=== PATIENT | female | born 1980 | race Caucasian/White ===

== ENCOUNTER 2020-09-21 07:14 | Day surgery (SDC) | payer BC, SELFPAY ==
[2020-09-19 10:10] LABS: BASOPHILS # (AUTO) 0.1 K/uL (0.0-0.2); BASOPHILS % (AUTO) 1.5 % (0.0-2.0); EOSINOPHILS # (AUTO) 0.1 K/uL (0.0-0.4); EOSINOPHILS % (AUTO) 1.2 % (0.0-4.0); HEMATOCRIT 36.3 % (36-48); HEMOGLOBIN 12.2 g/dL (12.0-16.0); LYMPHOCYTES # (AUTO) 1.4 K/uL (1.0-5.5); LYMPHOCYTES % (AUTO) 23.2 % (20.5-51.5); MEAN CORPUSCULAR HEMOGLOBIN 29 pg (27-31); MEAN CORPUSCULAR HGB CONC 34 % (32-36); MEAN CORPUSCULAR VOLUME 86 fL (79.0-98.0); MONOCYTES # (AUTO) 0.4 K/uL (0.0-1.0); MONOCYTES % (AUTO) 5.9 % (1.7-9.3); NEUTROPHILS # (AUTO) 4.1 K/uL (1.8-7.7); NEUTROPHILS % (AUTO) 68.2 % (40.0-70.0); PLATELET COUNT (AUTO) 215 K/uL (130-430); RED BLOOD CELL COUNT(AUTO) 4.23 MIL/uL (4.2-6.2); RED CELL DISTRIBUTION WIDTH 14.1 % (9.0-15.0)
[2020-09-19 10:26] LABS: BILIRUBIN,URINE NEGATIVE (NEGATIVE); CLARITY/URINE CLEAR (CLEAR); COLOR,URINE YELLOW (YELLOW); GLUCOSE,URINE NEGATIVE (NEGATIVE); KETONES,URINE NEGATIVE (NEGATIVE); LEUKOCYTE ESTERASE ,URINE NEGATIVE (NEGATIVE); NITRITE, URINE NEGATIVE (NEGATIVE); PROTEIN URINE NEGATIVE (NEGATIVE); UROBILINOGEN,URINE 0.2 (0.2-1.0)
[2020-09-19 10:27] LABS: BLOOD, URINE TRACE (NEGATIVE)
[2020-09-19 10:34] LABS: BACTERIA,URINE RARE /HPF (None Seen); MUCUS,URINE 1+ /LPF (None Seen); RBC,URINE 0-3 /HPF (0-3); WBC,URINE 0-3 /HPF (0-3)
[2020-09-19 10:45] LABS: ALBUMIN 4.1 g/dL (3.4-4.8); CREATININE 0.7 mg/dL (0.55-1.30); POTASSIUM 3.9 mmol/L (3.5-5.1); TOTAL BILIRUBIN 0.6 mg/dL (0.0-1.0)
[~2020-09-21] VITALS: Ht 162.6 cm; Wt 63.0 kg
[2020-09-21] MEDS ORDERED: CEFAZOLIN 2 GM IVPB PREMIX 50 ML IV ONE (08:15)
[2020-09-21] MEDS ORDERED: CIT IV ONE (09:00)
[2020-09-21] MEDS ORDERED: NS IV ONE (09:00)
[2020-09-21] MEDS ORDERED: FENTANYL IV ONE (09:00)
[2020-09-21] MEDS ORDERED: DEXAMETHASONE SOD PHOSPHATE 4 MG/ML VIAL IVP ONE ×2 (09:15→09:40)
[2020-09-21] MEDS ORDERED: ONDANSETRON HCL 4 MG/2 ML VIAL IVP ONE ×2 (09:15→09:30)
[2020-09-21] MEDS ORDERED: ONDANSETRON HCL 4 MG/2 ML VIAL ONE (09:23)
[2020-09-21] MEDS ORDERED: LR 1,000 ML IV.SOLN IV ONE (10:00)
[2020-09-21] MEDS ORDERED: fentaNYL CITRATE 250 MCG/5 ML AMP IV ONE (10:00)
[2020-09-21] MEDS ORDERED: ROCURONIUM BROMIDE 10 MG/ML (ZEMURON) IV ONE (10:00)
[2020-09-21] MEDS ORDERED: PROPOFOL 200MG/ 20ML VIAL (DIPRIVAN) IV ONE (10:00)
[2020-09-21] MEDS ORDERED: ROPIVACAINE HCL/PF 0.2% EPIDURAL 200 ML PLAST..BAG EP ONE (10:00)
[2020-09-21] MEDS ORDERED: MIDAZOLAM HCL 5 MG/5 ML VIAL IVP ONE (10:00)
[2020-09-21] MEDS ORDERED: LIDOCAINE 1% 10 MG/ML, 20 ML MDV IM ONE (10:00)
[2020-09-21] MEDS ORDERED: ONDANSETRON HCL 4 MG/2 ML VIAL IVP PRN ×2 (12:30→16:30)
[2020-09-21] MEDS ORDERED: KETOROLAC TROMETHAMINE 30 MG VIAL IVP PRN (12:30)
[2020-09-21] MEDS ORDERED: NALOXONE HCL 0.4 MG/ML AMP (NARCAN) IVP PRN (12:30)
[2020-09-21] MEDS ORDERED: HYDROmorphone 1 MG/ML INJ. CARTRIDGE ONE (15:48)
[2020-09-21] MEDS: HYDROmorphone 1 MG/ML INJ. CARTRIDGE IVP PRN ×2 (15:49→16:00)
[2020-09-21] MEDS ORDERED: OXYCODONE/ACETAMINOPHEN 5-325 TABLET PO PRN ×2 (16:30)
[2020-09-21] MEDS ORDERED: HYDROcodone/ACETAMIN 5-325 MG TAB (NORCO/ VICODIN) PO PRN (16:30)
[2020-09-21] MEDS ORDERED: HYDROmorphone 1 MG/ML INJ. CARTRIDGE IVP PRN (19:00)
[2020-09-21] MEDS: ONDANSETRON HCL 4 MG/2 ML VIAL IVP PRN (20:48)
[2020-09-21] MEDS ORDERED: ceFAZolin SODIUM 1 GM VIAL ONE ×2 (23:39→23:41)
[2020-09-21] MEDS: ceFAZolin SODIUM 1 GM in D5W 50 ML IV SCH (23:43)
[2020-09-22] MEDS: SIMETHICONE 80 MG TAB.CHEW PO SCH ×5 (01:58→21:57)
[2020-09-22] MEDS ORDERED: PHENAZOPYRIDINE HCL 100 MG TABLET ONE (03:46)
[2020-09-22] MEDS: PHENAZOPYRIDINE HCL 100 MG TABLET PO SCH ×5 (03:49→17:27)
[2020-09-22] MEDS: ceFAZolin SODIUM 1 GM in D5W 50 ML IV SCH ×4 (06:00→22:00)
[2020-09-22] MEDS: ONDANSETRON HCL 4 MG/2 ML VIAL IVP PRN ×2 (08:27→13:34)
--- NOTE | 2020-09-22 10:45 | NUR ---
RECEIVED PATIENT AAO LAYING IN BED ON ROOM AIR BREATHING EVEN AND UNLABORED NO SIGN OF DISTRESS. SURGICAL INCISION C/D/I WITH ABDOMINAL BINDER IN PLACE. LR GOING TO RIGHT WRIST #20 AT 100ML/HR. FAMILY AT BEDSIDE. SAFETY PRECAUTIONS IN PLACE WILL CONTINUE TO MONITOR.
[2020-09-22 11:30] VITALS: BP_SYST 116
--- NOTE | 2020-09-22 13:27 | NUR ---
Nutrition Note RD s/w pt via phone call as supervisor statement clerks stated that pt may be a vegetarian/vegan -- pt denied being a regular vegetarian/vegan, and reported that she is avoiding meats and certain vegetables d/t recent Sx -- pt disclosed LDAs: prefers to avoid rice, bread, pasta, broccoli, and cabbage, and prefers to eat mostly fruit, vegetables, soups, and potatoes; RD noted in LDAs list via [employer]. RD to continue to follow as per nutrition care standards.
[2020-09-22] MEDS ORDERED: SENNOSIDES/DOCUSATE SODIUM 1 TAB TABLET(SENOKOT-S) PO ONE (13:45)
[2020-09-22 16:02] VITALS: BP_SYST 116
--- NOTE | 2020-09-22 16:45 | NUR ---
PATIENT GETTING DRESSED WITH MOTHER ASSIST FELT LIGHTHEADED AND NAUSEATED. SITTING IN CHAIR AT BEDSIDE REQUESTING ICEPACKS. BLOOD PRESSURE 91/[address] SAHU TO REPORT RECEIVED NEW ORDERS AND CARRIED OUT.
--- NOTE | 2020-09-22 17:03 | NUR ---
PAGED PAGED ZITA LOVE AT [phone] SPOKE WITH ANA.
[2020-09-22] MEDS ORDERED: NACL 0.9% 1,000 ML IV ONE (17:15)
[2020-09-22] MEDS ORDERED: ONDANSETRON HCL 4 MG/2 ML VIAL ONE (17:15)
[2020-09-22] MEDS ORDERED: ONDANSETRON HCL 4 MG/2 ML VIAL IVP ONE (17:15)
--- NOTE | 2020-09-22 18:45 | NUR ---
PATIENT RESTING IN BED WITH EYES CLOSE NO SIGN OF DISTRESS. FAMILY AT BEDSIDE. BED IN LOW CALL LIGHT IN REACH WILL ENDORSE TO NEXT SHIFT.
--- NOTE | 2020-09-22 19:15 | NUR ---
OPENING NOTE PATIENT IN BED, EYES CLOSED, APPEARS TO BE ASLEEPF. NO S/S OF ACUTE DISTRESS NOTED. BREATHING EVEN AND UNLABORED. HOB RAISED. IV SITE PATENT, NO SIGNS OF INFILTRATION OR INFECTION NOTED. SOLIS ATTACHED, SECURED, AND DRAINING BY GRAVITY. CALL LIGHT WITH PATIENT. BED LOCKED AND AT LOWEST POSITION. PATIENT'S MOTHER PRESENT AT BEDSIDE. WILL CONTINUE TO MONITOR.
--- NOTE | 2020-09-22 22:30 | NUR ---
DISCHARGE LAST VITAL SIGNS TAKEN STABLE: BP 118/66, TEMP 97.2, HR 68, SPO2 98, RR 16, DENIES PAIN. ALL OF PATIENT'S QUESTIONS AND CONCERNS ADDRESSED. PATIENT EDUCATED ON DRESSING CHANGE, EDUCATED ON SOLIS BAG CHANGE. SOLIS ATTACHED,SECURED, AND DRAINING BY GRAVITY. ABDOMINAL BINDER ATTACHED PROPERLY. PATIENT ESCORTED OUT OF UNIT VIA WHEELCHAIR. ALL NEEDS MET. ALL PERSONAL BELONGINGS WITH PATIENT.
== END 2020-09-22 22:30 | disposition home or self-care (01) ==
LOC: SMU 07:14 → SDS 07:14 → SPU 17:21 → SMU 09-22 11:11 → SDS 09-22 22:30
PROVIDERS: ATTEND Specialist
DX: N92.0 Excessive and frequent menstruation with regular cycle (principal); N85.2 Hypertrophy of uterus; K83.1 Obstruction of bile duct; N73.6 Female pelvic peritoneal adhesions (postinfective); L51.1 Stevens-Johnson syndrome; R10.2 Pelvic and perineal pain; K81.9 Cholecystitis, unspecified; K42.9 Umbilical hernia without obstruction or gangrene; Z80.49 Family history of malignant neoplasm of other genital organs; E55.9 Vitamin D deficiency, unspecified; Z86.14 Personal history of Methicillin resistant Staphylococcus aureus infection
CPT/HCPCS: 36415; 47562; 58542; 71045; 80053; 81000; 84703; 85025; 87086; 87426; 88302; 88304; 88307; 93005; C1727; J0690 ×3; J1100; J1170; J2405 ×2; J3010; J7050; J7060 ×2; E0190; J2001; J2250; J2704; J7120